=== PATIENT | male | born 1940 | race Caucasian/White ===

== ENCOUNTER 2016-11-26 14:48 | Emergency (ER) | payer MEDICARE ==
[~2016-11-26] VITALS: Ht 167.6 cm; Wt 56.7 kg
[2016-11-26] MEDS ORDERED: IBUPROFEN 600 MG TABLET PO ONE ×2 (15:07→15:30)
[2016-11-26] MEDS ORDERED: TDAP [DIPH/PERTUSSIS/TET] 0.5 ML VIAL IM ONE ×2 (15:07→15:30)
[2016-11-26 16:13] VITALS: BP 135/72
== END 2016-11-26 16:14 | disposition home or self-care (01) ==
LOC: ER 14:50
DX: S51.811A Laceration without foreign body of right forearm, initial encounter (principal); S50.01XA Contusion of right elbow, initial encounter; S60.221A Contusion of right hand, initial encounter; W10.0XXA Fall (on)(from) escalator, initial encounter; Y92.59 Other trade areas as the place of occurrence of the external cause; Y99.8 Other external cause status; Y93.89 Activity, other specified
CPT/HCPCS: 12002; 73080 ×2; 73090; 73130; 90471; 90715; 99284; A4606; A6253; A6402; Z7610